=== PATIENT | female | born 1995 | race Hispanic/Latino ===

== ENCOUNTER 2020-08-20 23:02 | Emergency (ER) | payer OTHER ==
[~2020-08-20] VITALS: Ht 165.1 cm; Wt 117.9 kg
[2020-08-20] MEDS ORDERED: SODIUM CHLORIDE 0.9% 1000ML 1,000 ML IV SCH (23:15)
[2020-08-20] MEDS ORDERED: ONDANSETRON HCL INJ 2MG/ML 2ML 2 MG/ML VIAL IV PRN (23:15)
[2020-08-20] MEDS ORDERED: FENTANYL CITRATE/PF 100MCG/2 ML INJ IV ONE (23:30)
[2020-08-20 23:34] LABS: BASOPHILS % 0.1 % (0.0-1.0); HEMATOCRIT 31.4 % (34.2-44.1); HEMOGLOBIN 9.7 g/dL (12.0-16.0); LYMPHOCYTES # (AUTO) 1.2 (1.0-3.2); LYMPHOCYTES % 8.5 % (18.0-39.1); MEAN CORPUSCULAR HEMOGLOBIN 23.5 pg (28-32); MEAN CORPUSCULAR HGB CONC 30.9 g/dL (31-35); MEAN CORPUSCULAR VOLUME 76.2 fL (81-99); MONOCYTES # (AUTO) 0.5 (0.2-0.8); MONOCYTES % 3.8 % (4.4-11.3); NEUTROPHILS # (AUTO) 12.4 (2.1-6.9); NEUTROPHILS % 87.1 % (38.7-80.0); PLATELET COUNT 384 x10e3/uL (140-360); RED BLOOD COUNT 4.12 x10e6/uL (3.6-5.1); RED CELL DISTRIBUTION WIDTH 16.2 % (11.7-14.4)
--- NOTE | 2020-08-20 23:38 | Emergency Department Note ---
History of Present Illnes History of Present Illness Chief Complaint: Abdominal Complaints History of Present Illness This is a 24 year old female Chief Complaint Comment 24 Y/O FEMALE PT AAOX3 PRESENTS TO THE ER C/O ABD PAIN AND N/V ONSET AROUND 1300 THIS AFTERNOON AFTER BEING D/C FROM [facility] FOR CHOLECYSTITIS BY DR. Mihaela GATES; PT REPORTS SOB D/T PAIN AND PAIN WHILE SLEEPING; DR. Mihaela GATES WANTED BY TO COME TO THE ER FOR EVALUATION. Historian: Patient Arrival Mode: Car Inspector Mechanical Required: No Onset (how long ago): day(s) (1) Location: Abdomen Quality: Pain, nausea Severity: moderate Onset quality: gradual Duration (how long): day(s) (1) Timing of current episode: constant Progression: worsening Chronicity: new Context: Reports recent surgery; Denies recent illness Relieving factors: none Exacerbating factors: none Associated symptoms: Reports denies other symptoms Past Medical/Family History Physician Review I have reviewed the patient's past medical and family history. Any updates have been documented here. Past Medical History Recent Fever: No Clinical Suspicion of Infectio: No New/Unexplained Change in Ment: No Past Medical History: None Past Surgical History: Cholecysctectomy, T&A Other Surgery: D&C Review of Systems Review of Systems Constitutional: Reports no symptoms EENTM: Reports no symptoms Cardiovascular: Reports no symptoms Respiratory: Reports no symptoms Gastrointestinal: Reports abdominal pain, Reports nausea Genitourinary: Reports no symptoms Musculoskeletal: Reports no symptoms Integumentary: Reports no symptoms Neurological: Reports no symptoms Psychological: Reports no symptoms Endocrine: Reports no symptoms Hematological/Lymphatic: Reports no symptoms Physical Exam Related Data Allergies: Coded Allergies: No Known Allergies (Unverified , 08/20/20) Triage Vital Signs Vital Signs Date Time Temp Pulse Resp B/P (MAP) Pulse Ox O2 Delivery O2 Flow Rate FiO2 08/20/20 23:05 99.4 80 20 139/94 97 Room Air Vital signs reviewed: Yes Physical Exam CONSTITUTIONAL Constitutional: Present well-developed, Present well-nourished HENT HENT: Present normocephalic, Present atraumatic, Present oropharynx clear/moist, Present nose normal HENT L/R: Present left ext ear normal, Present right ext ear normal EYES Eyes: Reports PERRL, Reports conjunctivae normal NECK Neck: Present ROM normal PULMONARY Pulmonary: Present effort normal, Present breath sounds normal CARDIOVASCULAR Cardiovascular: Present regular rhythm, Present heart sounds normal, Present capillary refill normal, Present normal rate GASTROINTESTINAL Abdominal: Present soft, Present bowel sounds normal, Present tender (Post incisional wounds from surgery) GENITOURINARY Genitourinary: Present exam deferred SKIN Skin: Present warm, Present dry MUSCULOSKELETAL Musculoskeletal: Present ROM normal NEUROLOGICAL Neurological: Present alert, Present oriented x 3, Present no gross motor or sensory deficits PSYCHOLOGICAL Psychological: Present mood/affect normal, Present judgement normal Results Laboratory Result Diagram: 08/20/20 3394 Laboratory Laboratory Tests Test 08/20/20 23:25 White Blood Count 14.20 x10e3/uL (4.8-10.8) Red Blood Count 4.12 x10e6/uL (3.6-5.1) Hemoglobin 9.7 g/dL (12.0-16.0) Hematocrit 31.4 % (34.2-44.1) Mean Corpuscular Volume 76.2 fL (81-99) Mean Corpuscular Hemoglobin 23.5 pg (28-32) Mean Corpuscular Hemoglobin Concent 30.9 g/dL (31-35) Red Cell Distribution Width 16.2 % (11.7-14.4) Platelet Count 384 x10e3/uL (140-360) Neutrophils (%) (Auto) 87.1 % (38.7-80.0) Lymphocytes (%) (Auto) 8.5 % (18.0-39.1) Monocytes (%) (Auto) 3.8 % (4.4-11.3) Eosinophils (%) (Auto) 0.0 % (0.0-6.0) Basophils (%) (Auto) 0.1 % (0.0-1.0) Neutrophils # (Auto) 12.4 (2.1-6.9) Lymphocytes # (Auto) 1.2 (1.0-3.2) Monocytes # (Auto) 0.5 (0.2-0.8) Eosinophils # (Auto) 0.0 (0.0-0.4) Basophils # (Auto) 0.0 (0.0-0.1) Absolute Immature Granulocyte (auto 0.07 x10e3/uL (0-0.1) Assessment & Plan Medical Decision Making MDM 24-year-old female status post cholecystectomy was in the last 24 hours presents to the emergency Department for increased pain and nausea. She has been unable to keep anything down since her operation. She's been taking Tylenol 3, mild relief. Initial differential signature for postoperative application versus postoperative pain versus ileus lobe others. Examination shows postsurgical wounds which are well-appearing. CT abdomen and pelvis labs are largely unremarkable and showed postoperative changes. Patient is resting comfortably after Zofran. Will prescribe Zofran for home use answer to follow-up with Dr. Gates. Patient's appropriate for discharge. Reassessment Reassessment time: 01:25 Reassessment Resting comfortably Assessment & Plan Final Impression: (1) Post-op pain (2) Nausea Depart Disposition: HOME, SELF-CARE Last Vital Signs Date Time Temp Pulse Resp B/P (MAP) Pulse Ox O2 Delivery O2 Flow Rate FiO2 08/20/20 23:05 99.4 80 20 139/94 97 Room Air Medications in the ED Ondansetron HCl 4 mg Q4H PRN IV NAUSEA AND VOMITING; Start 08/20/20 at 23:15; Stop 09/19/20 at 23:14 Sodium Chloride 1,000 ml @ 100 mls/hr Q10H IV ; Start 08/20/20 at 23:15; Stop 09/19/20 at 23:14 Fentanyl Citrate 50 mcg ONCE ONCE IV ; Start 08/20/20 at 23:30; Stop 08/20/20 at 23:31; Status DC ROBINSON MARIE MD Aug 20, 2020 23:38
[2020-08-20 23:51] LABS: LIPASE < 4 U/L (8-78)
[2020-08-20 23:53] LABS: ALANINE AMINOTRANSFERASE 62 IU/L (0-55); ALBUMIN 4.4 g/dL (3.5-5.0); ALBUMIN/GLOBULIN RATIO 1.5 (0.8-2.0); ALKALINE PHOSPHATASE 105 IU/L (40-150); BLOOD UREA NITROGEN 7 mg/dL (7-26); BUN/CREATININE RATIO 10 (6-25); CALCIUM 8.7 mg/dL (8.4-10.2); CARBON DIOXIDE 23 mmol/L (22-29); CHLORIDE 105 mmol/L (98-107); EST GLOMERULAR FILTRATION RATE > 60 ML/MIN (60-); GLUCOSE 116 mg/dL (74-118); SODIUM 138 mmol/L (136-145)
[2020-08-20 23:56] LABS: HCG,QUANTITATIVE < 1.20 mIU/mL (0-10)
[2020-08-21] MEDS ORDERED: SODIUM CHLORIDE 0.9% 50ML 50 ML ONE (00:19)
[2020-08-21] MEDS ORDERED: IOPAMIDOL 370 MG/ML 200 ML INFUS..BTL INJ ONE (00:19)
--- NOTE | 2020-08-21 01:13 | Diagnostic Imaging Report ---
EXAM: CT Abdomen and Pelvis WITH contrast INDICATION: ^Abd pain ^[id number] ^0015 COMPARISON: None. TECHNIQUE: Abdomen and pelvis were scanned utilizing a multidetector helical scanner from the lung base to the pubic symphysis after administration of IV contrast. Coronal and sagittal reformations were obtained. Dose modulation, iterative reconstruction, and/or weight based adjustment of the mA/kV was utilized to reduce the radiation dose to as low as reasonably achievable. Routine protocol was performed. Scan was performed when during portal venous phase. IV CONTRAST: 100 mL of Isovue-370 ORAL CONTRAST: None COMPLICATIONS: None RADIATION DOSE: Total DLP: 864.38 mGy*cm Estimated effective dose: (DLP x 0.015 x size factor) mSv CTDIvol has been reviewed. It is below the limits set by the Radiation Protocol Committee (RPC). FINDINGS: LINES and TUBES: None. LOWER THORAX: Bibasilar consolidations, left greater right. HEPATOBILIARY: No focal hepatic lesions. No biliary ductal dilation. GALLBLADDER: Surgically absent. Gas containing approximately 2.4 x 2.4 cm collection in surgical bed. SPLEEN: No splenomegaly. PANCREAS: No focal masses or ductal dilatation. ADRENALS: No adrenal nodules KIDNEYS/URETERS: Kidneys enhance symmetrically. No hydronephrosis. No cystic or solid mass lesions. No stones. GI TRACT: No abnormal distention, wall thickening, or evidence of bowel obstruction. Appendix is normal. PELVIC ORGANS/BLADDER: Unremarkable. LYMPH NODES: No lymphadenopathy. VESSELS: Unremarkable. PERITONEUM / RETROPERITONEUM: Trace pneumoperitoneum. BONES: Unremarkable. SOFT TISSUES: Postsurgical changes of the abdominal wall. IMPRESSION: 1. Bibasilar consolidations, left greater than right, could represent atelectasis versus aspiration/pneumonia in the appropriate clinical context. 2. Status post cholecystectomy. 2.4 cm gas-containing collection in surgical bed. Presence of air, raises the possibility of small fistulous connection to the adjacent bowel loop. Attention on follow-up examination. 3. Trace postsurgical pneumoperitoneum. Signed by: Dr. Garett Bah MD on 08/21/2020 1:10 AM
[2020-08-21 01:45] VITALS: BP 125/88
== END 2020-08-21 01:50 | disposition home or self-care (01) ==
LOC: ER 23:48
DX: G89.18 Other acute postprocedural pain (principal); R11.2 Nausea with vomiting, unspecified
CPT/HCPCS: 36415; 74177; 80053; 83690; 84702; 85025; 96374; 96375; 99284; J2405; J3010; J7030; Q9967